=== PATIENT | female | born 1940 ===

== ENCOUNTER 2019-06-08 11:32 | Emergency (ER) | payer MEDICARE, BC ==
[~2019-06-08] VITALS: Ht 157.5 cm; Wt 67.6 kg
[2019-06-08] MEDS ORDERED: Robaxin-750750 MG PO (14:08)
[2019-06-08] MEDS ORDERED: Synthroid88 MCG PO (14:28)
== END 2019-06-08 14:28 | disposition home or self-care (01) ==
LOC: ER 11:32
DX: M25.551 Pain in right hip (principal); R10.2 Pelvic and perineal pain
CPT/HCPCS: 72192; 73502; 99284-25

== ENCOUNTER → 2024-10-31 | Outpatient (CLI) | payer MEDICARE, BC ==
[~2024-10-31] MED LIST: Robaxin-750750 MG PO; Synthroid88 MCG PO
== END | disposition home or self-care (01) ==
LOC: LAB SHORT 11:36 → LAB 11:36
DX: R30.0 Dysuria (principal)
CPT/HCPCS: 87077; 87086; 87186